=== PATIENT | male | born 1985 | race Caucasian/White ===

== ENCOUNTER 2018-07-09 18:43 | Emergency (ER) | payer BC, OTHER ==
--- NOTE | 2018-07-09 19:05 | EDPHY ---
H & P Stated Complaint: POSS CONCUSSION/HEAD INJ SKIING, NAUSEA, OUT OF IT Time Seen by Provider: 07/09/18 19:00 HPI/ROS: HPI: This is a 33-year-old male who presents with Chief Complaint: POSS CONCUSSION/HEAD INJ SKIING, NAUSEA, OUT OF IT Location: Head Quality: Injury Duration: Occurred around 10:30 a.m. Approximately 9 and 0.5 hr prior to arrival Signs and Symptoms: no fever, no nausea, no vomiting, no photophobia, no noise sensitivity, no neck stiffness, no ear pain, no tinnitus, no nasal congestion, no sinus pressure, no weakness, no radiation, no aura Timing: Acute, gradual onset Severity: Moderate Context: Patient reports that he was skiing with a helmet when he fell down and went horizontal hitting the back of his head on the snow. He reports that he felt mild pain at the time but continued to ski for the next 2 hr without any difficulty. Denies having any headache at this time. On the way home while he was driving his car he was having "difficulty."He was pulling out of a parking lot, friend as a passenger, and felt like "he just could not drive." He took ibuprofen prior to skiing today. He arrived home and feels nauseous and "not himself." was concerned as she read on the Internet that taking blood thinners and having head injury could cause bleeding within the brain. No history of prior concussions. Denies vomiting, headache, vision changes, neck pain, difficulty ambulating, speech changes. Denies LOC/head injury/neck pain/dizziness/vomiting/amnesia. Denies using alcohol or drugs today. Modifying Factors: None Comment: ROS: A comprehensive 10 system review of systems is otherwise negative aside from elements mentioned in the history of present illness. MEDICAL/SURGICAL/SOCIAL HISTORY: Medical history: Generally healthy. Does not take any regular medications. Surgical history: Denies Social history: Employed. . Family history noncontributory. CONSTITUTIONAL: Well-developed, well-nourished, overweight adult white male, awake and alert, no obvious distress HEENT: Atraumatic and normocephalic. NECK: supple, no midline tenderness, flexion 45 degrees, extension 45 degrees, right and left lateral flexion 45 degrees. No meningismus. Cardiovascular: Normal S1/S2, regular rate, regular rhythm, without murmur rub or gallop. PULMONARY/CHEST: Symmetrical and nontender. no crepitus. Clear to auscultation bilaterally. Good air movement. No accessory muscle usage. ABDOMEN: Soft, nondistended, nontender, no ecchymosis. PELVIC: no pain with rocking; bilateral hips flexion 125 degrees, extension 30 degrees, with no pain internal rotation and no pain external rotation. BACK: No midline tenderness, no paraspinous spasm, deep tendon reflexes 2/2, no pain with straight leg raise, No foot drop. Achilles reflexes are equal bilaterally. Able to walk on heels and toes without difficulty. EXTREMITIES: 2/2 pulses, strength 5/5, DIP/PIP/MCP flexion/extension intact with good light touch sensation. no deformities, no clubbing, no cyanosis or edema. NEUROLOGICAL: no focal neuro deficits. GCS 15. Light touch sensation intact. Cranial nerves 2-12 grossly intact. Normal Romberg testing. Normal cerebellar testing. SKIN: Warm and dry, no erythema. no rash. Good capillary refill. Source: Patient Exam Limitations: No limitations - Personal History Current Tetanus Diphtheria and Acellular Pertussis (TDAP): Yes - Medical/Surgical History Hx Asthma: Yes Hx Chronic Respiratory Disease: No Hx Diabetes: No Hx Cardiac Disease: No Hx Renal Disease: No Hx Cirrhosis: No Hx Alcoholism: No Hx HIV/AIDS: No Hx Splenectomy or Spleen Trauma: No Other PMH: ASTHMA - Social History Smoking Status: Never smoked Constitutional: Initial Vital Signs Temperature (C) 37.1 C 07/09/18 18:49 Heart Rate 93 07/09/18 18:49 Respiratory Rate 16 07/09/18 18:49 Blood Pressure 151/95 H 07/09/18 18:49 O2 Sat (%) 94 07/09/18 18:49 O2 Delivery Mode Room Air Allergies/Adverse Reactions: Penicillins Allergy (Verified 07/09/18 18:48) Home Medications: Medication Instructions Recorded Ondansetron Odt [Zofran Odt 4 mg 4 mg PO Q4 PRN #12 tab 07/09/18 (*)] VYVANSE 07/09/18 buPROPion 07/09/18 Medical Decision Making - Diagnostics Imaging Results: Imaging Impressions Head CT 07/09/18 19:05 Impression: 1. No acute intracranial hemorrhage or calvarial fracture. Monalisa working with Cassidy Ewing was notified of these findings by telephone at 7:31 PM on 07/09/2018 ED Course/Re-evaluation: Vital signs reviewed and show mildly elevated blood pressure. Patient ambulatory without any deficits from waiting room to the ER room. Based on the taking ibuprofen and dangerous mechanism as well as patient's insistence, based on nexus protocol, head CT imaging ordered No Midline tenderness or neck pain to indicate cervical CT imaging based on nexus protocol Given p.o. Marlo 1930: Radiologist, Dr. Lai, reports that head CT shows scan shows no acute intracranial process. Patient is showing signs of a mild concussion Concussion precautions advised thoroughly Given referral to the [facility]ussion [facility] and prescription for Zofran No signs of neurovascular compromise/tenting of skin/compartment syndrome/ extremities and joints examined above and below area of concern and are neurovascularly intact/seizure activity/CVA. This patient was seen under the supervision of my secondary supervising physician. I evaluated care for this patient with attending. Differential Diagnosis: Head injury including but not limited to concussion, skull fracture, intraparenchymal contusion, subarachnoid, subdural and epidural hematoma. - Data Points Medications Given: Discontinued Medications Ondansetron HCl (Zofran Odt) 4 mg PO EDNOW ONE Stop: 07/09/18 19:07 Last Admin: 07/09/18 19:11 Dose: 4 mg Departure - Departure Disposition: Home, Routine, Self-Care Clinical Impression: Mild concussion Qualifiers: Encounter type: initial encounter Loss of consciousness presence/duration: without LOC Qualified Code(s): S06.0X0A - Concussion without loss of consciousness, initial encounter Head injury, closed, without LOC Qualifiers: Encounter type: initial encounter Qualified Code(s): S09.90XA - Unspecified injury of head, initial encounter Condition: Good Instructions: Concussion (ED), Head Injury (ED) Additional Instructions: You sustained a closed head injury and mild concussion and it is recommended that you observe concussion precautions. Please do not participate in any contact sports or moderate and strenuous activity until all symptoms have resolved or cleared by PCP/Concussion Clinic. Take Tylenol 650 mg every 4 hours and/or Ibuprofen 600 mg every 8 hours with food as needed for pain/headache. Take Zofran every 4-6 hours as needed for nausea, vomiting. Consume a minimum of 8-10 glasses of water or electrolyte fluid replacement drinks that include Gatorade, Powerade, Pedialyte. You are to be closely monitored and observed for the 12 hr following initial injury time. Please follow-up with primary care provider in 5-7 days. If symptoms last longer than 1 week, please follow-up with Dr. Nguyen in the concussion Clinic. Return to the ER immediately if you have progressive headaches, neurologic deficits, gait abnormality, visual disturbance, slurred speech, or any other symptom that concerns you. Referrals: Rosario Nguyen MD [Medical Doctor] - As per Instructions Prescriptions: Ondansetron Odt [Zofran Odt 4 mg (*)] 4 mg PO Q4 PRN #12 tab PRN Reason: Nausea/Vomiting, Use 1st
[2018-07-09] MEDS ORDERED: ONDANSETRON DISINTEGRATING 4 MG TAB PO ONE (19:06)
[2018-07-09 19:40] VITALS: BP 144/78
== END 2018-07-09 19:38 | disposition home or self-care (01) ==
DX: S06.0X0A Concussion without loss of consciousness, initial encounter (principal); V00.321A Fall from snow-skis, initial encounter; Y93.23 Activity, snow (alpine) (downhill) skiing, snowboarding, sledding, tobogganing and snow tubing; Y92.838 Other recreation area as the place of occurrence of the external cause